=== PATIENT | female | born 1990 | race Caucasian/White ===

== ENCOUNTER 2016-07-03 20:49 | Emergency (ER) | payer BC, OTHER ==
[~2016-07-03 20:49] MED LIST: FLEXERIL10 MG PO; NO MEDICATIONS; VOLTAREN75 MG PO
[2016-07-22] MEDS ORDERED: FLEXERIL10 MG PO (22:35)
== END 2016-07-03 21:32 | disposition home or self-care (01) ==
LOC: SED 20:49
DX: M54.41 Lumbago with sciatica, right side (principal)
CPT/HCPCS: 96372; 99283; J1885; J2360

== ENCOUNTER 2016-07-22 22:49 | Inpatient (IN) | payer BC, OTHER ==
--- NOTE | ~2016-07-22 | CO ---
Unit #: [id number] #: [id number] Patient: YEN CHONG [id number] [address] [place], [place] [address] [id number] MR#: [id number] NAME: YEN CHONG ROOM: 218 Age: 26 Sex: F Admission Date: 07/23/2016 : 1990 Attending Physician: Mary Maya M.D. Consultation Date: 07/23/2016 CONSULTATION REPORT HISTORY OF PRESENT ILLNESS This patient is a 26-year-old white female with sudden onset of left upper quadrant pain, nausea, and one episode of emesis. She had pain in the left upper quadrant persistent, which has continued to be a problem for her. Temperature was 102. She has had a history of renal stones. She did have some blood in the urine. [place] [address]. CT scan with contrast showed some questionable ileitis more so in the right lower quadrant and no renal stones were noted. Her blood pressures fluctuated up and down with fluids, although her urine output has been fairly good. She has not had any major abdominal operations in the past. PAST MEDICAL HISTORY She is allergic to penicillin and latex. The patient has also had issues related to a questionable ovarian cyst on the left side and does have normal menstrual cycles. PHYSICAL EXAMINATION GENERAL: Cooperative alert white female, who is uncomfortable and in obvious pain in the left upper quadrant. HEENT: ENT is clear with injected sclerae. CHEST: Clear. CARDIAC: Rhythm is regular. Slight tachycardia. ABDOMEN: Not distended. 2 to 3+ tenderness in left upper quadrant with 1+ diffuse tenderness. Slight left upper quadrant guarding, but no rigidity. She does look uncomfortable. She has not complained of any CVA tenderness however. ASSESSMENT This patient could either have GI or pathology. It could be related to pyelonephritis or unseen renal stone versus pancreatitis. PLAN At this time, I would recommend empiric antibiotics, ultrasound of the left upper quadrant and left lower quadrant, repeat CBC and CMP. We will try also to use pain control. Dictated by... Lizzy Callaway/eusebia TD: 07/23/2016 07:19 JOB #: [id number] Unit #: [id number] #: [id number] Patient: YEN CHONG CONSULTATION REPORT X Malachi Lopez MD CONSULTATION REPORT
--- NOTE | ~2016-07-22 | US6 ---
[facility] A Service of [facility] RADIOLOGY TEXT RESULTS PATIENT: YEN CHONG LOCATION: A 218-01 : [birth year] UNIT #: [id number] AGE: [address]: Jesse Zapata MD SEX: F ORDER DR: [id number] [facility] [address] [facility]. [place], [place] [address] [id number] I MR#: [id number] Acc #: [id number] NAME: YEN CHONG : 1990 SEX: F STUDY DATE/TIME: 07/23/2016 8:59 UNIT: A ROOM: [facility] STUDY DESCRIPTION: US Abdominal Limited Attending Physician: Jesse Zapata M.D. Ordering Physician: Malachi Lopez M.D. Primary Care Physician: No Primary Care Physician MEDICAL IMAGING REPORT This report is preliminary unless electronic signature is present EXAM Limited abdominal ultrasound. INDICATION Left upper quadrant abdominal pain since yesterday. PROCEDURE Crocker-scale and Doppler imaging left upper quadrant of the abdomen. COMPARISON CT from 07/23/2016 FINDINGS Left kidney measures 10.5 cm. No hydronephrosis. Spleen measures 13.4 cm. IMPRESSION No acute findings in the left upper quadrant. Spleen is upper limits of lixowz-py-sfumvtmuxa enlarged at 13.4 cm. Dictated by... Justin Rm M.D. THIS IS AN ELECTRONICALLY VERIFIED REPORT Justin Rm M.D. at 07/24/2016 2:11 PM EED/dimitrios TD: 07/23/2016 14:48 JOB #: [id number] MEDICAL IMAGING REPORT COPY
--- NOTE | ~2016-07-22 | CT2 ---
[facility] A Service of [facility] RADIOLOGY TEXT RESULTS PATIENT: YEN CHONG LOCATION: [facility] 218-01 : [birth year] UNIT #: [id number] AGE: [address]: Jesse Zapata MD SEX: F ORDER DR: [id number] [address] [address] [id number] I MR#: [id number] Acc #: [id number] NAME: YEN CHONG. : 1990 SEX: F STUDY DATE/TIME: 07/23/2016 0:45 UNIT: SEDOF ROOM: [id number] STUDY DESCRIPTION: CT Abd and Pelv W Cont Attending Physician: Mary Maya M.D. Ordering Physician: Jose Perrin M.D. Primary Care Physician: Primary Care Physician No MEDICAL IMAGING REPORT This report is preliminary unless electronic signature is present. EXAM CT abdomen and pelvis with contrast Date: 07/23/2016 HISTORY 26-year-old female. Upper abdominal pain and back pain with nausea since this morning, 07/22/2016. COMPARISON No prior CT abdomen and pelvis at this institution for comparison. PROCEDURE 5 mm axial images from lung bases through lesser trochanters after intravenous and enteric contrast administration. Sagittal and coronal reformatted images were obtained. This CT exam was performed with one or more of the following radiation dose reduction techniques: automatic exposure control, adjustment of mA and/or kV according to patient size, and iterative reconstruction. FINDINGS There is clustered abnormal small bowel thickening within the right lower quadrant of the abdomen. Findings are worrisome for infectious or inflammatory enteritis. This is thought to involve primarily the terminal ileum. Unfortunately, the appendix cannot be confidently visualized on this examination. No free air, free fluid or abscess is seen. Clustered mildly prominent lymph nodes in the abdominal mesentery to the right of midline are thought to be benign and reactive. The lung bases are clear. There is reflux of enteric contrast into the lower thoracic esophagus. The liver, spleen, pancreas, adrenals and kidneys are within normal limits. [facility] A Service of [facility] RADIOLOGY TEXT RESULTS PATIENT: YEN CHONG LOCATION: [place] [address] : [birth year] UNIT #: [id number] AGE: [address]: Jesse Zapata MD SEX: F ORDER DR: Pelvis: Left ovarian cyst measures approximately 2.3 cm. Urinary bladder is moderately distended with fluid. A small quantity of free fluid within the pelvic cul-de-sac. Tampon is in place within the vagina. Study is somewhat degraded secondary to attenuation by body habitus and mild motion within the lower abdomen and pelvis. IMPRESSION 1. Abnormally thickened small bowel loops centered within the right lower quadrant of the abdomen thought to represent the terminal ileum. Findings are thought to be most consistent with infectious or inflammatory terminal ileitis. Unfortunately, the appendix cannot be satisfactorily visualized on this examination. The distal small bowel and the colon are not opacified with enteric contrast at the time of image acquisition. 2. 2.3 cm left ovarian cyst. 3. Trace pelvic free fluid. No abscess is seen. 1. Dictated by... Annemarie Adrian M.D. THIS IS AN ELECTRONICALLY VERIFIED REPORT Annemarie Adrian M.D. at 07/24/2016 12:11 AM Messi TD: 07/23/2016 12:00 JOB #: [id number] MEDICAL IMAGING REPORT
--- NOTE | ~2016-07-22 | HP ---
Unit #: [id number] #: [id number] Patient: YEN CHONG [id number] [address] [address] [id number] I MR#: [id number] NAME: YEN CHONG. ROOM: 218 Age: 26 Sex: F Admission Date: 07/23/2016 : 1990 Attending Physician: Mary Maya M.D. Primary Care Physician: No Primary Care Physician HISTORY AND PHYSICAL CHIEF COMPLAINT Epigastric left upper quadrant pain. HISTORY OF PRESENT ILLNESS This pleasant 26-year-old female with history of sciatica was transferred from [facility] emergency department for abdominal pain. The patient was in her usual state of health until yesterday morning when she began to experience epigastric/left upper quadrant crampy abdominal discomfort. She states that it initially felt like a hunger pain. She then attempted to eat, experienced nonbloody nausea and vomiting. She began to then experience fevers and chills and presented to [facility] ER. At [facility] ER, her temperature was as high as 102 degrees. She was bolused with two liters of saline, given two doses of morphine, Zofran, Pepcid and Ibuprofen for her fever. It is of note that the patient has been recently taking nonsteroidal anti-inflammatory drugs for her sciatica. She denies melena or hematochezia. In the course of her workup, a CT scan was performed showing some abdominal thickening o the small bowel loops around the terminal ileum which could represent terminal ileitis. However, on the examination, the patient has minimal lower abdominal tenderness. She is mainly tender in the epigastric and left upper quadrant. She denies diarrhea, dietary indiscretion or ill contacts. She does not usually have stomach issues. PAST MEDICAL HISTORY 1. Questionable multiple sclerosis. The patient states that she had all the hallmarks of the disease clinically. The MRI scan was equivocal. 2. Sciatica. 3. Diskectomy. 4. Oral surgery. 5. ORIF for an olecranon fracture. SOCIAL HISTORY The patient lives with her boyfriend, son and the boyfriend's family. She drinks occasional alcohol, does not use illicit drugs, is a lifelong nonsmoker. FAMILY HISTORY Unknown as the patient is adopted. ALLERGIES Penicillin, Tylenol and latex. Unit #: [id number] #: [id number] Patient: YEN CHONG HOME MEDICATIONS 1. Nonsteroidal anti-inflammatory drugs. 2. Flexeril. REVIEW OF SYSTEMS Abdominal pain, fevers, chills, questionable multiple sclerosis, sciatica, above-mentioned surgeries, nausea and vomiting. All other systems were reviewed and are negative. PHYSICAL EXAMINATION GENERAL APPEARANCE: A pleasant, 26-year-old, moderately obese female who looks to be uncomfortable. VITAL SIGNS: Temperature 99.6 but was as high as 102 degrees. Heart rate 115. Respirations 18. Blood pressure 155/89. O2 saturation 97% on room air. HEENT: Eyes: PERRLA. Extraocular muscles are intact. Pharynx is benign. NECK: Supple without adenopathy or thyromegaly. CHEST: Clear. CARDIAC: Normal S1, S2 without S3, S4 or murmur. ABDOMEN: Bowel sounds are present. The patient is most tender in the epigastric and left upper quadrant without definite guarding or rebound. She is minimally tender in the lower quadrants bilaterally. No hepatosplenomegaly or masses. EXTREMITIES: Without clubbing, cyanosis or edema. Pedal pulses are present. NEUROLOGIC: The patient is awake, alert, oriented. Cranial nerves are intact. Equal strength throughout. DIAGNOSTIC STUDIES LABORATORY: Hematocrit 40.3, WBC count 11.5, normal platelet count. Beta hCG negative. SMA-12 is normal as is amylase and lipase. Influenza swab and monospot are negative. Urinalysis with 10 to 25 RBCs, 2 to 5 WBCs. No bacteria. IMAGING: CT scan of the abdomen shows some thickened small bowel loops around the terminal ileum. It could represent terminal ileitis. A 2.3 cm left ovarian cyst. ASSESSMENT 1. Epigastric/left upper quadrant pain. The patient has a fever associated with this. There is some questionable terminal ileitis on CT scan but the patient is minimally tender in the lower quadrants and no diarrhea. I am unsure of the etiology of the patient's symptoms at this point. 2. Possible history of multiple sclerosis. 3. Sciatica. PLAN 1. Proton pump inhibitor. 2. IV fluids and supportive treatment. 3. Repeat labs this morning. 4. Blood cultures are pending. 5. We will ask speciality service to see in consultation. 6. SCDs for DVT prophylaxis. Unit #: [id number] #: [id number] Patient: YEN CHONG Dictated by Mary Maya M.D. AML/bd TD: 07/23/2016 07:17 JOB #: [id number] HISTORY AND PHYSICAL X Mary Maya MD X HISTORY AND PHYSICAL
--- NOTE | ~2016-07-22 | DS ---
Unit #: [id number] #: [id number] Patient: YEN CHONG [id number] [address] [address] [id number] I MR#: [id number] NAME: YEN CHONG. ROOM: 218 Age: 26 Sex: F Admission Date: 07/23/2016 : 1990 Discharge Date: 07/24/2016 Attending Physician: Jesse Zapata M.D. DISCHARGE SUMMARY DISCHARGE DIAGNOSES 1. Colitis. 2. Possible history of multiple sclerosis. 3. Sciatic pain, chronic in nature. CONSULTANTS [facility]. PROCEDURES None. DIAGNOSTIC STUDIES IMAGING STUDIES: Consist of CT of abdomen and pelvis with impression, abnormally thickened small bowel loops centered on the right lower quadrant of the abdomen that represent terminal ileum. Findings are thought to be most consistent with infectious or limited terminal ileitis. Unfortunately, the appendix cannot be satisfactorily visualized in exam. The distal small bowel and colon are supplied with enteric contrast at the time of image. A 2.3 cm ovarian cyst, trace pelvic free fluid, no abscess seen. Left upper quadrant ultrasound was done with impression, no acute findings in the left upper quadrant. Spleen in the upper limits of normal with borderline larger 13.4 cm. LABORATORY RESULTS: On the day of discharge, the patient's labs were BMP; glucose of 110, BUN less than 5, creatinine 0.7, sodium 135, potassium 3.8, chloride 107, CO2 of 24, calcium is 8.1, total protein 5.7, albumin 3.1, total bilirubin was 0.2, AST is 15, ALT was 13, alk phos was 39, amylase was 9, lipase was 11. Urine test was negative. CBC with WBC of 5.6 and then was 6.5, RBC is 3.64, hemoglobin is 11, hematocrit is 32.3, MCV was 88.7, MCH was 30.2, MCHC was 34.1, RDW was 12.3, platelets are 185, MPV was 8.6. Urine culture had no growth and blood culture had no growth as well. HOSPITAL COURSE The patient is a 26-year-old female with past medical history of possible multiple sclerosis, as well as sciatic pain and diskectomy, who presents to the emergency department due to epigastric and left upper quadrant pain. The patient says that she was in her usual state of health until the day prior to admission, when she started having epigastric pain and left upper quadrant pain, that have radiated to the back. The patient initially felt like a hunger pain. When she attempt to eat, she had nonbloody emesis. She was nauseous and she presents to [facility] Unit #: [id number] #: [id number] Patient: YEN CHONG [facility] Emergency Department. She had a fevers as well as chills. She had a documented temperature of 102 and was given bolus 2 L saline as well as treated for pain with Morphine and was transferred to [facility] for further care. She denied melena and denied hematochezia. Of note, she had been taking nonsteroidal anti-inflammatory just for her sciatic pain. She did have CT of abdomen and however feels some abdominal thickening of the small bowel loops around the terminal ileum. She was seen in consultation with [facility], who felt that her pain could have been due to number of things and could not rule out colitis in general and nor the possibility of an ovarian rupture therefore, left upper quadrant abdominal ultrasound was accessed, which was unremarkable. The following day due to the patient's resolved fever as well as her improving symptoms, her diet was advanced by [facility] and we did check to see if the patient had an H. pylori per serology which was negative. The patient did receive high-dose IV Protonix while she was here. Her hemoglobin and hematocrit were stable; although, at this hospitalization, she had no additional episodes of emesis, and [facility] did not feel that the patient needed endoscopy to assess for any source of ulcer bleed. On the day of discharge, the patient was anxious to go home to be with her son, therefore she was discharged in stable condition after she had tolerated her diet and had been afebrile. Blood culture had no growth. She was discharged with 7 more days of antibiotics with Levaquin and Flagyl. She was given precautions and advised to return to the emergency department to be reevaluated for intractable nausea, vomiting, as well as fever greater than 100.4 and she had voiced understanding. Discharge condition is stable. Diet to resume heart healthy diet as was prior to hospitalization. Return to activity as was prior to hospitalization with ambulating everyday. She is to followup with her primary care physician next week and to follow up with [facility] within 1 to 2 weeks for any further workup. DISCHARGE MEDICATIONS Include Flagyl 500 mg orally three times a day for the next 7 days, Levaquin 500 mg orally daily for the next 5 days, and Flexeril 10 mg orally as needed at bedtime, prescription for tetanus was given. Dictated by... Pastora Taveras PA-C for Lizzy Chavarria/eusebia TD: 07/28/2016 11:57 JOB #: [id number] DISCHARGE SUMMARY Page 1 of 1 X X DISCHARGE SUMMARY
[2016-07-22 23:18] LABS: BASOPHIL% 0.2 % (0-2.5); EOSINOPHIL# 0.1 X10e3 (0-0.7); EOSINOPHIL% 1.3 % (0.0-7.0); HEMATOCRIT 40.3 % (35.0-45.0); HEMOGLOBIN 13.6 gm/dL (12.0-16.0); LYMPHOCYTE# 0.9 X10e3 (1.0-3.5); LYMPHOCYTE% 8.2 % (17.0-45.0); MEAN CELL VOLUME 88.7 FL (83-96); MEAN CORPUSCULAR HEMOGLOBIN 29.9 PG (28-34); MEAN CORPUSCULAR HGB CONC 33.7 g/dL (30-36); MEAN PLATELET VOLUME 8.5 FL (6.5-11.5); MONOCYTE# 0.5 X10e3 (0-1.0); MONOCYTE% 4.4 % (3.0-12.0); NEUTROPHIL# 9.9 X10e3 (1.5-7.1); NEUTROPHIL% 85.9 % (40-75); PLATELET COUNT 228 X10e3 (140-420); RED BLOOD COUNT 4.54 X10e (3.90-5.30); RED CELL DISTRIBUTION WIDTH 12.1 % (11.0-15.5); WHITE BLOOD COUNT 11.5 X10e3 (4.0-10.5)
[2016-07-22 23:19] LABS: DIFF IND NO
[2016-07-22 23:38] LABS: ALBUMIN SERUM 4.1 g/dL (3.5-5.0); ALKALINE PHOSPHATASE 51 U/L (32-92); ALT (SGPT) 17 U/L (10-40); AMYLASE 11 U/L (0-46); AST (SGOT) 20 U/L (10-42); BILIRUBIN, DIRECT 0.1 mg/dL (0.0-0.2); BILIRUBIN,INDIRECT 0.6 mg/dL (0.0-0.9); BILIRUBIN,TOTAL 0.7 mg/dL (0.2-2.0); BLOOD UREA NITROGEN 12 mg/dL (9-23); BUN/CREATININE RATIO 17.14; CALCIUM SERUM 9.2 mg/dL (8.4-10.2); CARBON DIOXIDE 25 mmol/L (22-31); CHLORIDE 102 mmol/L (100-111); CREATININE SERUM 0.7 mg/dL (0.6-1.4); GLOM FILT RATE Estimated ABOVE60 mL/min (>60); GLUCOSE FASTING 93 mg/dL (70-110); LIPASE 19 U/L (22-51); POTASSIUM 3.8 mmol/L (3.5-5.1); PROTEIN TOTAL SERUM 7.6 g/dL (6.0-8.3); SODIUM 136 mmol/L (135-145)
[2016-07-23 01:16] LABS: URINE SOURCE CLEAN CATCH
[2016-07-23 01:18] LABS: URINE APPEARANCE CLEAR; URINE BILIRUBIN NEG (NEG); URINE BLOOD 2+ (NEG); URINE COLOR YELLOW; URINE GLUCOSE NEG (NORM); URINE KETONE NEG (NEG); URINE LEUKOCYTE ESTERASE NEG (NEG); URINE NITRATE NEG (NEG); URINE PROTEIN NEG (NEG); URINE UROBILINOGEN 0.2 MG/DL (NORM)
[2016-07-23 01:20] LABS: MICRO INDICATED? YES
[2016-07-23 01:23] LABS: CULTURE INDICATED? NO; URINE BACTERIA NEG (NEG)
[2016-07-23 01:24] LABS: URINE SQUAMOUS EPITHELIAL CELL OCCAS /[HPF]
[2016-07-23 02:03] LABS: INFLUENZA A NEG (NEG); INFLUENZA B NEG (NEG)
[2016-07-23 09:00] LABS: HEMATOCRIT 33.3 % (35.0-45.0); MEAN CELL VOLUME 89.5 FL (83-96); MEAN CORPUSCULAR HEMOGLOBIN 30.4 PG (28-34); MEAN CORPUSCULAR HGB CONC 33.9 g/dL (30-36); MEAN PLATELET VOLUME 8.4 FL (6.5-11.5); RED BLOOD COUNT 3.73 X10e (3.90-5.30); RED CELL DISTRIBUTION WIDTH 12.3 % (11.0-15.5); WHITE BLOOD COUNT 6.8 X10e3 (4.0-10.5)
[2016-07-23 09:07] LABS: HEMOGLOBIN 11.3 gm/dL (12.0-16.0)
[2016-07-23 09:28] LABS: ALBUMIN SERUM 3.2 g/dL (3.5-5.0); ALKALINE PHOSPHATASE 38 U/L (32-92); ALT (SGPT) 12 U/L (10-40); AST (SGOT) 17 U/L (10-42); BILIRUBIN,TOTAL 0.6 mg/dL (0.2-2.0); BLOOD UREA NITROGEN 11 mg/dL (9-23); BUN/CREATININE RATIO 18.33; CALCIUM SERUM 8.1 mg/dL (8.4-10.2); CARBON DIOXIDE 23 mmol/L (22-31); CHLORIDE 109 mmol/L (100-111); CREATININE SERUM 0.6 mg/dL (0.6-1.4); GLOM FILT RATE Estimated ABOVE60 mL/min (>60); GLUCOSE FASTING 107 mg/dL (70-110); POTASSIUM 3.7 mmol/L (3.5-5.1); PROTEIN TOTAL SERUM 5.8 g/dL (6.0-8.3); SODIUM 140 mmol/L (135-145)
[2016-07-23 12:51] LABS: HEMOGLOBIN 11.6 gm/dL (12.0-16.0); MEAN CELL VOLUME 89.5 FL (83-96); MEAN CORPUSCULAR HEMOGLOBIN 30.5 PG (28-34); MEAN CORPUSCULAR HGB CONC 34.1 g/dL (30-36); MEAN PLATELET VOLUME 8.1 FL (6.5-11.5); RED BLOOD COUNT 3.79 X10e (3.90-5.30); RED CELL DISTRIBUTION WIDTH 12.1 % (11.0-15.5); WHITE BLOOD COUNT 5.8 X10e3 (4.0-10.5)
[2016-07-23 13:13] LABS: AMYLASE 9 U/L (0-46); BLOOD UREA NITROGEN 8 mg/dL (9-23); BUN/CREATININE RATIO 11.42; CALCIUM SERUM 7.9 mg/dL (8.4-10.2); CARBON DIOXIDE 24 mmol/L (22-31); CHLORIDE 110 mmol/L (100-111); CREATININE SERUM 0.7 mg/dL (0.6-1.4); GLOM FILT RATE Estimated ABOVE60 mL/min (>60); GLUCOSE FASTING 108 mg/dL (70-110); LIPASE 13 U/L (22-51); POTASSIUM 3.7 mmol/L (3.5-5.1); SODIUM 137 mmol/L (135-145)
[2016-07-23 13:24] LABS: URINE APPEARANCE CLEAR; URINE BILIRUBIN NEG (NEG); URINE BLOOD 1+ (NEG); URINE COLOR YELLOW; URINE GLUCOSE NEG (NEG); URINE KETONE NEG (NEG); URINE LEUKOCYTE ESTERASE NEG (NEG); URINE NITRATE NEG (NEG); URINE PROTEIN NEG (NEG); URINE SPECIFIC GRAVITY 1.008 (1.003-1.035); URINE UROBILINOGEN 0.2 MG/DL (NEG)
[2016-07-23 13:25] LABS: AMPHETAMINE NEG (NEG); BARBITURATES NEG (NEG); BENZODIAZEPINES NEG (NEG); COCAINE NEG (NEG); MARIJUANA POS (NEG); OPIATES POS (NEG); TRICYCLIC ANTIDEPRESSANTS NEG (NEG); U METHADONE NEG (NEG)
[2016-07-23 13:28] LABS: URINE BACTERIA AUWI NEG (NEGATIVE); URINE SQUAMOUS EPITHELIAL CELL NONE SEEN /[HPF]; UWBCS1 AUWI 0-2 (0-5)
[2016-07-24 05:15] LABS: HEMATOCRIT 32.3 % (35.0-45.0); MEAN CELL VOLUME 88.7 FL (83-96); MEAN CORPUSCULAR HEMOGLOBIN 30.2 PG (28-34); MEAN CORPUSCULAR HGB CONC 34.1 g/dL (30-36); MEAN PLATELET VOLUME 8.6 FL (6.5-11.5); RED BLOOD COUNT 3.64 X10e (3.90-5.30); RED CELL DISTRIBUTION WIDTH 12.3 % (11.0-15.5); WHITE BLOOD COUNT 6.5 X10e3 (4.0-10.5)
[2016-07-24 06:16] LABS: ALBUMIN SERUM 3.1 g/dL (3.5-5.0); ALKALINE PHOSPHATASE 39 U/L (32-92); ALT (SGPT) 13 U/L (10-40); AST (SGOT) 15 U/L (10-42); BILIRUBIN,TOTAL 0.2 mg/dL (0.2-2.0); CALCIUM SERUM 8.1 mg/dL (8.4-10.2); CARBON DIOXIDE 24 mmol/L (22-31); CHLORIDE 107 mmol/L (100-111); CREATININE SERUM 0.7 mg/dL (0.6-1.4); GLOM FILT RATE Estimated ABOVE60 mL/min (>60); GLUCOSE FASTING 110 mg/dL (70-110); LIPASE 11 U/L (22-51); POTASSIUM 3.8 mmol/L (3.5-5.1); PROTEIN TOTAL SERUM 5.7 g/dL (6.0-8.3); SODIUM 135 mmol/L (135-145)
[2016-07-24 06:17] LABS: BLOOD UREA NITROGEN <5 mg/dL (9-23); BUN/CREATININE RATIO 7.14
[2016-07-24] MEDS ORDERED: LEVOFLOXACIN500 MG PO (18:35)
[2016-07-24] MEDS ORDERED: FLAGYL PO (18:44)
== END 2016-07-24 19:51 | disposition home or self-care (01) | DRG 386 ==
LOC: SED 22:49 → C2A 07-23 05:00
PROVIDERS: Emergency Medicine; Family Medicine; Internal Medicine; Physician Assistant Medical; Surgery
DX: K50.00 Crohn's disease of small intestine without complications (principal); R65.10 Systemic inflammatory response syndrome (SIRS) of non-infectious origin without acute organ dysfunction; M54.30 Sciatica, unspecified side; G35 Multiple sclerosis
CPT/HCPCS: 36415; 74177; 76705; 80048; 80053; 80076; 80307; 81003; 82150; 83605; 83690; 84703; 85025; 85027; 86308; 86677; 87040; 87086; 87804; 96361; 96374; 96375; 96376; 99285; C9113; J1956; J2270; J2405; Q9967